=== PATIENT | male | born 1955 | race Two or more races ===

== ENCOUNTER 2023-11-16 05:21 | Emergency (ER) | payer OTHER ==
[~2023-11-16] VITALS: Ht 170.2 cm; Wt 74.8 kg
[2023-11-16] MEDS ORDERED: PLAVIX75 MG (05:36)
[2023-11-16] MEDS ORDERED: SINGULAIR10 MG (05:37)
[2023-11-16] MEDS ORDERED: NAMENDA5 MG (05:37)
[2023-11-16] MEDS ORDERED: ARICEPT5 MG (05:37)
== END 2023-11-16 06:43 | disposition home or self-care (01) ==
LOC: ER 05:21
DX: E11.649 Type 2 diabetes mellitus with hypoglycemia without coma (principal); Z88.6 Allergy status to analgesic agent; Z79.4 Long term (current) use of insulin